=== PATIENT | male | born 2000 | race Caucasian/White ===

== ENCOUNTER 2019-11-21 15:56 | Outpatient (CLI) | payer OTHER ==
--- NOTE | 2019-11-21 16:26 | Diagnostic Imaging Report ---
PATIENT MR#: [id number] PATIENT PATIENT NAME: TATY BENTLEY DATE OF : 2000 REFERRING PHYSICIAN: Jewel Aarujo EXAM DATE: 11/21/2019 ACCESSION NUMBER: [id number] EXAM DESCRIPTION: CHEST 2VIEW PA and lateral chest History: Cough PA and lateral chest dated November 21, 2019 demonstrates airspace disease in the retrocardiac region consistent with pneumonia. Heart size is normal. The right lung is clear. There is no pleural effusion. Impression: Retrocardiac airspace disease consistent with pneumonia. Read by: Dr. Jaclyn Torres Transcribed by: Transcribed Date: Electronically signed by: Dr. Jaclyn Torres Date signed: 11/21/2019 4:25:44 PM
== END 2019-11-21 16:06 ==
LOC: RAD 15:56
PROVIDERS: ATTEND Family Medicine
DX: J18.9 Pneumonia, unspecified organism (principal)